=== PATIENT | male | born 1955 | race Asian ===

== ENCOUNTER 2021-08-12 04:49 | Day surgery (SDC) | payer BC, OTHER ==
[2021-08-11 16:09] VITALS: BMI 23.6
[2021-08-12 11:22] VITALS: BP 126/75; PULSE 60; TEMP 98
== END 2021-08-12 11:42 | disposition home or self-care (01) ==
LOC: JASU-ENDO 04:49
PROVIDERS: ATTEND Internal Medicine Gastroenterology
PROC: 0DB78ZX Excision of Stomach, Pylorus, Via Natural or Artificial Opening Endoscopic, Diagnostic (ICD-10-PCS; 2021-08-12)
PROC: 0DB68ZX Excision of Stomach, Via Natural or Artificial Opening Endoscopic, Diagnostic (ICD-10-PCS; 2021-08-12)
PROC: 0DB98ZX Excision of Duodenum, Via Natural or Artificial Opening Endoscopic, Diagnostic (ICD-10-PCS; principal; 2021-08-12 11:00)
DX: K29.50 Unspecified chronic gastritis without bleeding (principal); K29.80 Duodenitis without bleeding; K31.7 Polyp of stomach and duodenum; K44.9 Diaphragmatic hernia without obstruction or gangrene
CPT/HCPCS: 88305-TC; 88342-TC

== ENCOUNTER 2021-10-28 04:38 | Day surgery (SDC) | payer BC, OTHER ==
[2021-10-24 08:43] VITALS: BMI 22.9
[2021-10-28] MEDS ORDERED: ACETAMINOPHEN 325 MG TABLET (FP) PO PRN (09:41)
[2021-10-28] MEDS ORDERED: LACTATED RINGERS SOLUTION 1,000 ML IV SCH (09:45)
[2021-10-28 11:22] VITALS: RESP 10; TEMP 97.8
[2021-10-28 11:55] VITALS: BP 113/78; PULSE 69
== END 2021-10-28 12:17 | disposition home or self-care (01) ==
LOC: JASU-ENDO 04:38
PROVIDERS: ATTEND Internal Medicine Gastroenterology
PROC: 0DJD8ZZ Inspection of Lower Intestinal Tract, Via Natural or Artificial Opening Endoscopic (ICD-10-PCS; principal; 2021-10-28 10:00)
DX: Z12.11 Encounter for screening for malignant neoplasm of colon (principal)

== ENCOUNTER 2022-09-28 04:23 | Day surgery (SDC) | payer BC, OTHER ==
[2022-09-24 13:51] VITALS: BMI 22.3
[2022-09-28 10:44] VITALS: TEMP 98.6
[2022-09-28 11:30] VITALS: BP 121/78; PULSE 63; RESP 18
== END 2022-09-28 11:50 | disposition home or self-care (01) ==
LOC: JASU-ENDO 04:23
PROVIDERS: ATTEND Internal Medicine Gastroenterology
PROC: 0DB78ZX Excision of Stomach, Pylorus, Via Natural or Artificial Opening Endoscopic, Diagnostic (ICD-10-PCS; 2022-09-28)
PROC: 0DB68ZX Excision of Stomach, Via Natural or Artificial Opening Endoscopic, Diagnostic (ICD-10-PCS; 2022-09-28)
PROC: 0DB98ZX Excision of Duodenum, Via Natural or Artificial Opening Endoscopic, Diagnostic (ICD-10-PCS; principal; 2022-09-28 10:15)
DX: K29.50 Unspecified chronic gastritis without bleeding (principal); K25.9 Gastric ulcer, unspecified as acute or chronic, without hemorrhage or perforation
CPT/HCPCS: 36415; 82941; 88305-TC; 88342-TC